=== PATIENT | male | born 1965 | race Caucasian/White ===

== ENCOUNTER 2018-09-18 03:30 | Emergency (ER) | payer SELFPAY ==
[~2018-09-18] VITALS: Ht 167.6 cm; Wt 77.1 kg
[2018-09-18] MEDS ORDERED: LIDOCAINE W/ EPINEPHRINE 1% 20ML VIAL ONE (05:38)
[2018-09-18] MEDS ORDERED: cefTRIAXone SOD 1,000 MG VL IM ONE (06:00)
[2018-09-18 06:10] VITALS: BP 135/91
[2018-09-18] MEDS ORDERED: BACITRACIN TOP OINT 1 UD PKG TOP ONE (06:15)
== END 2018-09-18 06:29 | disposition home or self-care (01) ==
LOC: ER 03:30
DX: S02.5XXA Fracture of tooth (traumatic), initial encounter for closed fracture (principal); S02.40BA Malar fracture, left side, initial encounter for closed fracture; S02.40DA Maxillary fracture, left side, initial encounter for closed fracture; S01.511A Laceration without foreign body of lip, initial encounter; S06.9X0A Unspecified intracranial injury without loss of consciousness, initial encounter; F17.210 Nicotine dependence, cigarettes, uncomplicated; F12.10 Cannabis abuse, uncomplicated; R42 Dizziness and giddiness; M54.2 Cervicalgia; W22.8XXA Striking against or struck by other objects, initial encounter; Y93.39 Activity, other involving climbing, rappelling and jumping off; Y92.511 Restaurant or cafe as the place of occurrence of the external cause; Y99.8 Other external cause status
CPT/HCPCS: 12011; 70450; 70486; 72125; 96372; 99284; J0696

== ENCOUNTER 2018-09-24 20:25 | Emergency (ER) | payer MEDICAID ==
[~2018-09-24] VITALS: Ht 167.6 cm; Wt 79.4 kg
[2018-09-24 21:02] VITALS: BP 146/81
[2018-09-24] MEDS ORDERED: LIDOCAINE W/ EPINEPHRINE 2% INJ 20ML VIAL IJ ONE (23:00)
== END 2018-09-25 00:12 | disposition home or self-care (01) ==
LOC: ER 20:25
DX: S01.511A Laceration without foreign body of lip, initial encounter (principal); F17.210 Nicotine dependence, cigarettes, uncomplicated; F12.90 Cannabis use, unspecified, uncomplicated; Y08.89XA Assault by other specified means, initial encounter; Y93.89 Activity, other specified; Y99.8 Other external cause status; Y92.89 Other specified places as the place of occurrence of the external cause
CPT/HCPCS: 12052